=== PATIENT | female | born 1945 | race Caucasian/White ===

== ENCOUNTER 2017-06-17 11:05 | Outpatient (CLI) | payer MEDICARE, OTHER | END 2017-06-17 11:06 | disposition home or self-care (01) | LOC: RT.S 11:05 | PROVIDERS: ATTEND Internal Medicine Cardiovascular Disease | DX: I48.91 Unspecified atrial fibrillation (principal); I35.0 Nonrheumatic aortic (valve) stenosis; I10 Essential (primary) hypertension; E78.5 Hyperlipidemia, unspecified; Z95.2 Presence of prosthetic heart valve | CPT/HCPCS: 93005 ==

== ENCOUNTER 2017-08-20 14:24 | Outpatient (CLI) | payer MEDICARE, OTHER | END 2017-08-20 14:25 | disposition home or self-care (01) | LOC: RT.S 14:24 | PROVIDERS: ATTEND Internal Medicine Advanced Heart Failure and Transplant Cardiology | DX: I48.0 Paroxysmal atrial fibrillation (principal) | CPT/HCPCS: 93005 ==